=== PATIENT | male | born 1950 | race Caucasian/White ===

== ENCOUNTER 2018-05-08 14:54 | Inpatient (IN) | payer OTHER, MEDICARE ==
[~2018-05-08] VITALS: Ht 172.7 cm; Wt 96.8 kg
--- NOTE | ~2018-05-08 | PR ---
[place], [place] PROGRESS NOTE NAME: LORE MARROQUIN UNIT #: [id number] ROOM: 507 DOCTOR: ASHLEIGH ESCOBAR MD BIRTHDATE: [birth year] DOS: 05/10/2018 NEPHROLOGY FOLLOWUP NOTE SUBJECTIVE: The patient was seen and examined. He is awake, alert. Denies shortness of breath. Denies nausea, vomiting, fevers or chills. He was on room air. PHYSICAL EXAMINATION: VITAL SIGNS: Showed temperature 97.5, pulse 92, respiratory rate 18, blood pressure 158/92. HEENT: Shows no JVD. LUNGS: Diminished breath sounds with no wheeze. HEART: S1, S2. No rub, thrill or gallop. ABDOMEN: Soft, nontender. There is no organomegaly. EXTREMITIES: Had no edema. LABORATORY DATA: Reviewed. Hemoglobin 15, white count of 14.9, platelets 177. BUN 9, creatinine 0.75, sodium 133, potassium 4.9, CO2 of 33, calcium of 9.0. ASSESSMENT AND PLAN: 1. Hyponatremia, which may be related to syndrome of inappropriate antidiuretic hormone. There may be some element of a low solute intake contributing as well. The patient's sodium level is improving. He is off IV fluids. Continue an oral fluid restriction. Increase protein intake. Avoid thiazide diuretics. 2. Lung mass. Plans for biopsy noted as an outpatient. 3. History of alcohol abuse. He is on DT prophylaxis it seems and being monitored carefully. 4. Hypertension. Continue meds. As stated, avoid thiazides. ASHLEIGH ESCOBAR MD CM:PNTRANS [id number] ASHLEIGH ESCOBAR MD 05/10/18 1638 interface
--- NOTE | ~2018-05-08 | CON ---
[place], [place] REPORT OF CONSULTATION NAME: LORE MARROQUIN UNIT #: [id number] ROOM: 507 DOCTOR: LIGIA MAHAN MD BIRTHDATE: [birth year] DOS: 05/09/2018 PULMONARY CONSULTATION EVALUATION AND MANAGEMENT CONSULTATION REQUESTED BY: Hospitalist Service. REASON FOR CONSULTATION: Assessment of current pulmonary nodule, other respiratory problem. HISTORY OF PRESENT ILLNESS: A 67-year-old white male patient admitted to the hospital for assessment of progressive pain, which is described in the left side of the back as well as the shoulder and side of the chest. The pain has been ongoing for the past 1 month or more. The pain was radiating to the left arm causing some numbness. The pain has been described intermittently, mild to moderate in severity. [facility] and has been noted with nodule/mass in the right upper lobe and awaiting for further assessment. The patient came into the Emergency Room where he had been assessed and hospitalized. He does have symptoms of wheezing at times described as "smoker cough." The cough was noted productive sputum in the morning. He does have symptoms of wheezing at times as well. Shortness of breath has been noted usually with exertional activities. There were no symptoms of hemoptysis. REVIEW OF SYSTEMS: CONSTITUTIONAL SYMPTOMS: He was complaining of symptoms of fatigue and tiredness without any fever or chills. EYES: Denies any burning, redness, or tenderness. EARS, NOSE, THROAT SYMPTOMS: Denies sore throat, hoarseness, otalgia, postnasal drainage or epistaxis. CARDIOVASCULAR: Denies angina pain, edema, pain of the lower extremities. GASTROINTESTINAL: No dysphagia, nausea, vomiting, diarrhea, abdominal pain, hematemesis, melena, hematochezia, or abnormal weight loss history recently. GENITOURINARY SYMPTOMS: Denies dysuria, suprapubic pain, or hematuria. MUSCULOSKELETAL SYMPTOMS: Denies acute joint pain, redness, or tenderness except his current left-sided shoulder pain. CENTRAL NERVOUS SYSTEM: Denies dizziness, headache, diplopia, syncopal episodes. SKIN: Denies abnormal lesions or rashes. Remaining systems were reviewed, they were noted all negative. PAST MEDICAL HISTORY: 1. Noted intervertebral disk disease. 2. Degenerative arthritis. 3. Chronic nicotine use. SOCIAL HISTORY: The patient is , lives at home. Drinks 2 or 3 beers a day. Denies history of alcohol use. Tobacco use noted a pack of cigarettes or more a day for many years since teenager. Denies history of alcohol use or illicit drugs. [place], [place] REPORT OF CONSULTATION NAME: LORE MARROQUIN UNIT #: [id number] ROOM: 507 DOCTOR: LIGIA MAHAN MD BIRTHDATE: [birth year] FAMILY HISTORY: The patient's father age 3535 years old, unknown medical illnesses. Mother at the age of 8383 years old with an unknown cancer. HOME MEDICATIONS: Noted as p.r.n. use of Tylenol. DRUG ALLERGIES: No known drug allergies. PHYSICAL EXAMINATION: GENERAL: This is a 67-year-old white male patient who has been currently noted comfortable at this time, lying in the bed without any acute distress. VITAL SIGNS: The patient's height was recorded by the nursing staff as 5 feet 8 inches, weight of 213 pounds, BMI 32.4. VITAL SIGNS: For the patient shows a normal temperature. The respiratory rate of 20-18, heart rate 93-99, blood pressure 148/95-125/78. Pulse oxygen saturation of the patient recorded on room air 93% saturation. HEENT: Examination shows head was atraumatic. Eyes nonicterus. NECK: Supple. CARDIOVASCULAR: S1, S2 is audible. LUNGS: The patient was noted with moderate decreased breath sounds noted in the lungs bilaterally with expiratory wheezing. ABDOMEN: Soft with moderate obesity. Bowel sounds present. EXTREMITIES: No tenderness. No organomegaly. SKIN: Visible skin was noted with dryness of the skin. There were no lesions or rashes. CENTRAL NERVOUS SYSTEM: Cranial nerves 2-12 intact. No focal deficit. MUSCULOSKELETAL: Noted without any acute deformities. LABORATORY DATA: Reviewed on this patient. CBC that was done yesterday on admission WBC count 12.7, hemoglobin, hematocrit and platelet count were normal. CMP of 96, BUN normal, creatinine was normal, sodium 128, chloride of 92. BUN 27. CBC of 05/09/2018 was noted as a MCV 102, normal CBC. The CMP for the patient that was done today, BUN 5, creatinine was normal. Sodium 129, chloride of 93. Total protein 8.5, albumin normal. The PT and PTT were noted as normal. The chest x-ray that was done on 05/08/2018, the patient was noted with right upper lung nodule. CT scan of the chest was done as a CTA of the chest for the patient and it shows evidence of 1.5 x 1.9 irregular nodule present in the right upper lung close to the subpleural surface. Right hilar lymph node enlargement for the patient was also noted. There was no recent chest x-ray noted. Last x-ray was done for the patient in 2002 that was essentially noted as no acute abnormalities. IMPRESSION: 1. The patient who has been currently admitted to the hospital noted with symptoms of pain, which is described in the shoulder, arm and the left side of the chest and the back. The symptoms were currently being investigated. 2. Very mild hyponatremia with normal BUN and creatinine and low urine osmolality with possible consideration of syndrome of inappropriate antidiuretic hormone secretion versus poor oral intake of sodium and use of the beer. 3. The patient with right upper lung nodule at this time with lymph node enlargement, strong suspicion for primary lung malignancy. [place], [place] REPORT OF CONSULTATION NAME: LORE MARROQUIN UNIT #: [id number] ROOM: 507 DOCTOR: LIGIA MAHAN MD BIRTHDATE: [birth year] 4. The patient with acute exacerbation of chronic obstructive pulmonary disease, new onset. 5. History of longstanding tobacco use as well. PLAN OF MANAGEMENT: The patient has been ordered the fluid restriction by the Nephrology Services, [facility]. Solu-Medrol currently given 40 mg b.i.d. that will be continued. Continue bronchodilators and oxygen supplementation. Continuation of the nicotine placement patches as well. Reduction of Solu-Medrol will be done gradually with improvement in the respiratory status. Further assessment of the current problem was suggested for this patient to be done either through the [facility] or could be assisted and done through my office. The patient has not made any decision about that and stated that he would speak it with the daughter prior to making the decision. In the meantime, the patient's respiratory status will be optimized. Other therapy, plan of management to be continued. Usual care. All other supportive plan of management and care plan. Usual medical management and other therapies. Smoking cessation and counseling was done with the patient. He has been currently using nicotine placement patches that will be continued. Thank you for allowing me to participate in the care of this patient. LIGIA MORALES MD CM:CONSTR:REPORT OF CONSULTATION 1649 05/10/18 0048 interface
--- NOTE | ~2018-05-08 | EKG ---
[place], [place] ELECTROCARDIOGRAM REPORT NAME: LORE MARROQUIN UNIT #: [id number] ROOM: 507 DOCTOR: KENZIE DRAFT REPORT BIRTHDATE: [birth year] [facility] Test Date: 2018-05-08 Test Time: 20:53:16 Pat Name: LORE MARROQUIN Department: Room: 507 Gender: M Boom Master: SS RESP : 1950 Requested By: ISABELLE PETTY PA-C Order Number: [id number] Reading MD: Santos Pratt MD Measurements Intervals [place] Rate: 100 P: 81 OK: 200 QRS: 72 QRSD: 100 T: 54 QT: 347 QTc: 448 Interpretive Statements Sinus tachycardia Atrial premature complex Probable left atrial enlargement Low voltage, extremity leads Baseline wander in lead(s) II,III,aVF Electronically Signed On 05-09-2018 13:41:20 PDT by Santos Pratt MD CM:EKGRPT:ELECTROCARDIOGRAM REPORT 54 1341 ISABELLE ESPINO DRAFT REPORT ISABELLE PETTY PA-C
--- NOTE | ~2018-05-08 | PR ---
[place], [place] PROGRESS NOTE NAME: LORE MARROQUIN UNIT #: [id number] ROOM: 507 DOCTOR: CARMEN SMILEY MD,LIGIA BIRTHDATE: [birth year] DOS: 05/11/2018 SUBJECTIVE: The patient noted comfortable at this time, resting on the bed without any acute distress. He was planned for discharge home today. Respiratory symptoms, the patient has improved significantly. Denies any chest pain. OBJECTIVE: VITAL SIGNS: The patient showed normal temperature, respiratory rate 18, heart rate 102 and blood pressure 156/94. The pulse oxygen saturation of the patient room air 92% saturation. HEENT: Showed no new change. NECK: Supple. CARDIOVASCULAR: S1, S2 is audible. LUNGS: The patient was noted without any wheezing or crackles at present time. ABDOMEN: Soft, nontender. EXTREMITIES: No acute edema. IMPRESSION: The patient with right upper lung pulmonary nodule with lymphadenopathy in the right hilar area, history of nicotine abuse and chronic obstructive pulmonary disease. PLAN OF TREATMENT: The patient could be discharged whenever he is desired per primary care attending. Outpatient PET scan will be done for the patient prior to further assessment and management of current suspected nodule as a possibility of malignancy, primary lung cancer is high. Abstinence tobacco use for the patient was discussed. Outpatient followup established after the PET scan that will be arranged through the office. LIGIA MORALES MD CM:PNTRANS [id number] LIGIA SMILEY MD 05/11/18 1137 interface
--- NOTE | ~2018-05-08 | PR ---
[place], [place] PROGRESS NOTE NAME: LORE MARROQUIN UNIT #: [id number] ROOM: 507 DOCTOR: LIGIA MAHAN MD BIRTHDATE: [birth year] DOS: 05/10/2018 PULMONARY PROGRESS NOTE SUBJECTIVE: He has been noted comfortable at this time, reduction in respiratory symptoms are noted including chest pain and other symptoms of shortness of breath and wheezing, the patient has been improving. There were no symptoms of chest pain. OBJECTIVE: VITAL SIGNS: Normal temperature this afternoon, respiratory rate of 18, heart rate 92, blood pressure 158/92. Pulse oxygen saturation on room air 94% saturation. HEENT: Head was atraumatic. Eyes nonicterus. NECK: Supple. CARDIOVASCULAR: S1, S2 audible. LUNGS: Without any wheeze or crackle. Breaths are noted mild to moderately decreased bilaterally. ABDOMEN: Soft, obese, nontender. EXTREMITIES: No edema. LABORATORY DATA: The patient's sodium noted 133, CO2 33. CBC - WBC 14.9. IMPRESSION: 1. Resolving hyponatremia, improving acute exacerbation of chronic obstructive pulmonary disease, history of chronic nicotine dependence. 2. Pulmonary nodule noted in the right upper lung with associated mild right hilar lymphadenopathy suggestive of possibility of malignant process, required further assessment. PLAN OF MANAGEMENT: Assessment and management of the patient today were discussed with the patient and the patient wished to have further workup done and medical management for current pulmonary nodule. He could make an appointment as an outpatient. Information will be given to him. Tobacco cessation counseling was done again. The patient could be discharged home whenever desired if medically stable from pulmonary standpoint. [place], [place] PROGRESS NOTE NAME: LORE MARROQUIN UNIT #: [id number] ROOM: 507 DOCTOR: LIGIA MAHAN MD BIRTHDATE: [birth year] LIGIA MORALES MD CM:PNTRANS [id number] LIGIA SMILEY MD 05/10/18 2324 interface
[~2018-05-08 14:54] MED LIST: CLARITIN10 MG PO; MEDROL DOSEPAK4 MG PO
[2018-05-08 14:55] VITALS: BP 148/95
[2018-05-08] MEDS ORDERED: APAP500 MG PO (15:01)
[2018-05-08 16:07] LABS: BASO # 0.1 10*3/uL (0.0-0.1); BASO % 0.5 % (0.0-1.0); EOS # 0.2 10*3/uL (0.0-0.4); EOS % 1.6 % (1.0-4.0); HEMATOCRIT 45.4 % (42.0-52.0); HEMOGLOBIN 15.9 g/dl (14.0-18.0); LYMPH # 4.1 10*3/uL (1.3-4.4); LYMPH % 32.7 % (27.0-41.0); MEAN CELL VOLUME 100.4 fl (80.0-94.0); MEAN CORPUSCULAR HGB 35.2 pg (27.0-31.0); MEAN PLATELET VOLUME 9.1 fl (9.6-12.3); MONO # 1.1 10*3/uL (0.1-1.0); MONO % 8.7 % (3.0-9.0); NEUT # 7.1 10*3/uL (2.3-7.9); NEUT % 56.1 % (47.0-73.0); PLATELET COUNT AUTOMATED 180 10*3/uL (130-400); RED BLOOD COUNT 4.52 10*6/uL (4.50-5.90); RED CELL DISTRI WIDTH 13.1 % (0-14.5); WHITE BLOOD COUNT 12.7 10*3/uL (4.8-10.8)
[2018-05-08 16:24] LABS: ALBUMIN 3.4 gm/dl (3.1-4.5); ALKALINE PHOSPHATASE 85 U/L (45-117); BUN 3 mg/dl (7-24); CHLORIDE 92 mmol/L (98-107); POTASSIUM 3.8 mmol/L (3.5-5.1); SGOT/AST 20 IU/L (3-35); SGPT/ALT 32 U/L (12-78); SODIUM 128 mmol/L (136-145); TOTAL PROTEIN 8.4 gm/dL (6.4-8.2)
[2018-05-08 16:57] VITALS: BP 142/94
[2018-05-08 18:45] VITALS: BP 146/92
[2018-05-08 20:20] VITALS: BP 146/72
[2018-05-08 22:35] VITALS: BP 162/95
[2018-05-09 06:10] LABS: BASO % 0.2 % (0.0-1.0); EOS % 0.1 % (1.0-4.0); HEMATOCRIT 47.5 % (42.0-52.0); HEMOGLOBIN 16.4 g/dl (14.0-18.0); LYMPH # 1.2 10*3/uL (1.3-4.4); LYMPH % 14.7 % (27.0-41.0); MEAN CELL VOLUME 102.4 fl (80.0-94.0); MEAN CORPUSCULAR HGB 35.3 pg (27.0-31.0); MEAN CORPUSCULAR HGB CONC 34.5 g/dl (33.0-37.0); MEAN PLATELET VOLUME 9.8 fl (9.6-12.3); MONO # 0.1 10*3/uL (0.1-1.0); MONO % 0.9 % (3.0-9.0); NEUT # 6.8 10*3/uL (2.3-7.9); NEUT % 83.6 % (47.0-73.0); PLATELET COUNT AUTOMATED 186 10*3/uL (130-400); RED BLOOD COUNT 4.64 10*6/uL (4.50-5.90); WHITE BLOOD COUNT 8.2 10*3/uL (4.8-10.8)
[2018-05-09 06:28] LABS: ALBUMIN 3.3 gm/dl (3.1-4.5); BUN 5 mg/dl (7-24); CHLORIDE 93 mmol/L (98-107); CHOLESTEROL 171 mg/dL (<200); CREATININE 0.79 mg/dL (0.70-1.30); PHOSPHOROUS 3.5 mg/dL (2.5-4.9); POTASSIUM 4.7 mmol/L (3.5-5.1); SGOT/AST 17 IU/L (3-35); SGPT/ALT 31 U/L (12-78); SODIUM 129 mmol/L (136-145); TOTAL PROTEIN 8.5 gm/dL (6.4-8.2); TRIGLYCERIDES 90 mg/dl (<150); VLDL CHOLESTEROL 18 mg/dL (6-40)
[2018-05-09 06:35] LABS: ALKALINE PHOSPHATASE 84 U/L (45-117); FREE T4 1.21 ng/dl (0.76-1.46); HDL CHOLESTEROL 37 mg/dl (40-60); LDL CHOLESTEROL 116 mg/dL (9-159); THYROID STIM HORMONE (HS) 0.712 uIU/ml (0.358-4.75)
[2018-05-09 06:45] LABS: ACT PARTIAL THROMBO TIME 26.8 SECONDS (20.8-31.5)
[2018-05-09 07:48] LABS: VITAMIN D, 25-HYDROXY 14.2 ng/mL (30-100)
[2018-05-09 12:00] VITALS: BP 125/78
[2018-05-09 16:00] VITALS: BP 138/83
[2018-05-09 20:00] VITALS: BP 160/83
[2018-05-10] VITALS: BP 152/80
[2018-05-10 06:22] LABS: BASO % 0.1 % (0.0-1.0); HEMATOCRIT 43.6 % (42.0-52.0); LYMPH # 1.9 10*3/uL (1.3-4.4); LYMPH % 12.9 % (27.0-41.0); MEAN CELL VOLUME 103.6 fl (80.0-94.0); MEAN CORPUSCULAR HGB 35.6 pg (27.0-31.0); MEAN CORPUSCULAR HGB CONC 34.4 g/dl (33.0-37.0); MEAN PLATELET VOLUME 9.8 fl (9.6-12.3); MONO # 0.8 10*3/uL (0.1-1.0); MONO % 5.4 % (3.0-9.0); NEUT # 12.1 10*3/uL (2.3-7.9); NEUT % 80.6 % (47.0-73.0); PLATELET COUNT AUTOMATED 177 10*3/uL (130-400); RED BLOOD COUNT 4.21 10*6/uL (4.50-5.90); RED CELL DISTRI WIDTH 13.1 % (0-14.5); WHITE BLOOD COUNT 14.9 10*3/uL (4.8-10.8)
[2018-05-10 06:44] LABS: BUN 9 mg/dl (7-24); CHLORIDE 96 mmol/L (98-107); CREATININE 0.75 mg/dL (0.70-1.30); POTASSIUM 4.9 mmol/L (3.5-5.1); SODIUM 133 mmol/L (136-145)
[2018-05-10 08:00] VITALS: BP 148/68
[2018-05-10 12:00] VITALS: BP 158/92
[2018-05-10 16:00] VITALS: BP 150/87
[2018-05-10 20:00] VITALS: BP 146/84
[2018-05-11] VITALS: BP 156/94
[2018-05-11] MEDS ORDERED: NICODERM T (08:31)
[2018-05-11] MEDS ORDERED: LISINOPRIL10 M1 PO (08:31)
[2018-05-11] MEDS ORDERED: LEVOFLOXACIN500 MG PO (08:31)
[2018-05-11] MEDS ORDERED: PREDNISONE10 MG PO (08:31)
== END 2018-05-11 09:35 | disposition home or self-care (01) | DRG 871 ==
LOC: ED 14:54 → 5E 21:47 → EDHOLD 21:47 → 5E 22:07
PROVIDERS: Internal Medicine; Physician Assistant; Student in an Organized Health Care Education/Training Program
DX: A41.9 Sepsis, unspecified organism (principal); J18.9 Pneumonia, unspecified organism; E44.1 Mild protein-calorie malnutrition; E87.1 Hypo-osmolality and hyponatremia; J44.0 Chronic obstructive pulmonary disease with (acute) lower respiratory infection; J44.1 Chronic obstructive pulmonary disease with (acute) exacerbation; D75.89 Other specified diseases of blood and blood-forming organs; R91.8 Other nonspecific abnormal finding of lung field; I10 Essential (primary) hypertension; E87.8 Other disorders of electrolyte and fluid balance, not elsewhere classified; Z96.651 Presence of right artificial knee joint; R91.1 Solitary pulmonary nodule; R59.1 Generalized enlarged lymph nodes; M19.90 Unspecified osteoarthritis, unspecified site; Z72.0 Tobacco use; Z71.6 Tobacco abuse counseling; Z79.899 Other long term (current) drug therapy; Z80.8 Family history of malignant neoplasm of other organs or systems; Z68.32 Body mass index [BMI] 32.0-32.9, adult

== ENCOUNTER → 2018-06-11 | Outpatient (CLI) | payer OTHER, MEDICARE ==
[~2018-06-11] MED LIST changes: +APAP500 MG PO; +LEVOFLOXACIN500 MG PO; +LISINOPRIL10 M1 PO; +NICODERM T; +PREDNISONE10 MG PO
== END | disposition home or self-care (01) ==
LOC: RESCLI 01:18
DX: I10 Essential (primary) hypertension (principal); G56.22 Lesion of ulnar nerve, left upper limb; R91.8 Other nonspecific abnormal finding of lung field; R00.0 Tachycardia, unspecified; F17.200 Nicotine dependence, unspecified, uncomplicated

== ENCOUNTER 2018-09-17 11:25 | Inpatient (IN) | payer MEDICARE, OTHER ==
[~2018-09-17] VITALS: Ht 170.2 cm; Wt 84.4 kg
--- NOTE | ~2018-09-17 | EKG ---
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
[2018-09-17 11:28] VITALS: BP 126/80
[2018-09-17 12:58] LABS: BASO # 0.1 10*3/uL (0.0-0.1); BASO % 0.6 % (0.0-1.0); EOS # 0.2 10*3/uL (0.0-0.4); EOS % 1.6 % (1.0-4.0); HEMATOCRIT 43.9 % (42.0-52.0); HEMOGLOBIN 14.8 g/dl (14.0-18.0); LYMPH % 32.1 % (27.0-41.0); MEAN CELL VOLUME 98.4 fl (80.0-94.0); MEAN CORPUSCULAR HGB 33.2 pg (27.0-31.0); MEAN CORPUSCULAR HGB CONC 33.7 g/dl (33.0-37.0); MEAN PLATELET VOLUME 9.2 fl (9.6-12.3); MONO # 1.1 10*3/uL (0.1-1.0); MONO % 11.3 % (3.0-9.0); NEUT # 5.1 10*3/uL (2.3-7.9); NEUT % 53.7 % (47.0-73.0); PLATELET COUNT AUTOMATED 212 10*3/uL (130-400); RED BLOOD COUNT 4.46 10*6/uL (4.50-5.90); RED CELL DISTRI WIDTH 13.1 % (0-14.5); WHITE BLOOD COUNT 9.4 10*3/uL (4.8-10.8)
[2018-09-17 13:05] LABS: ACT PARTIAL THROMBO TIME 25.3 SECONDS (20.8-31.5)
[2018-09-17 13:17] LABS: ALBUMIN 2.9 gm/dl (3.1-4.5); ALKALINE PHOSPHATASE 106 U/L (45-117); BUN 4 mg/dl (7-24); CHLORIDE 90 mmol/L (98-107); CREATININE 0.59 mg/dL (0.70-1.30); POTASSIUM 4.4 mmol/L (3.5-5.1); SGOT/AST 30 IU/L (3-35); SGPT/ALT 31 U/L (12-78); SODIUM 127 mmol/L (136-145); TOTAL PROTEIN 7.6 gm/dL (6.4-8.2)
[2018-09-17 13:19] LABS: TROPONIN I < 0.015 ng/ml (<0.045)
[2018-09-17 16:03] VITALS: BP 136/84
[2018-09-17] MEDS ORDERED: MORPHINE SULFAT30 M9 PO (16:37)
[2018-09-17] MEDS ORDERED: LASIX20 MG PO (16:38)
[2018-09-17] MEDS ORDERED: OXYCODONE5 M1 PO (16:38)
[2018-09-17] MEDS ORDERED: K-TAB20 MEQ PO (16:54)
[2018-09-17 19:34] VITALS: BP 106/63
[2018-09-18] VITALS: BP 117/68
[2018-09-18 06:41] LABS: BASO # 0.1 10*3/uL (0.0-0.1); BASO % 0.6 % (0.0-1.0); EOS # 0.3 10*3/uL (0.0-0.4); EOS % 3.5 % (1.0-4.0); HEMOGLOBIN 13.8 g/dl (14.0-18.0); LYMPH # 2.5 10*3/uL (1.3-4.4); LYMPH % 27.6 % (27.0-41.0); MEAN CELL VOLUME 99.3 fl (80.0-94.0); MEAN CORPUSCULAR HGB 34.2 pg (27.0-31.0); MEAN CORPUSCULAR HGB CONC 34.5 g/dl (33.0-37.0); MONO # 1.3 10*3/uL (0.1-1.0); MONO % 14.1 % (3.0-9.0); NEUT # 4.7 10*3/uL (2.3-7.9); NEUT % 53.1 % (47.0-73.0); PLATELET COUNT AUTOMATED 222 10*3/uL (130-400); RED BLOOD COUNT 4.03 10*6/uL (4.50-5.90); RED CELL DISTRI WIDTH 13.2 % (0-14.5); WHITE BLOOD COUNT 8.9 10*3/uL (4.8-10.8)
[2018-09-18 07:04] LABS: ALBUMIN 2.6 gm/dl (3.1-4.5); BUN 5 mg/dl (7-24); CHLORIDE 95 mmol/L (98-107); CREATININE 0.57 mg/dL (0.70-1.30); PHOSPHOROUS 3.4 mg/dL (2.5-4.9); POTASSIUM 4.2 mmol/L (3.5-5.1); SGOT/AST 23 IU/L (3-35); SGPT/ALT 26 U/L (12-78); SODIUM 132 mmol/L (136-145); TOTAL PROTEIN 6.6 gm/dL (6.4-8.2)
[2018-09-18 07:05] LABS: ALKALINE PHOSPHATASE 95 U/L (45-117)
[2018-09-18 12:00] VITALS: BP 101/61
[2018-09-18] MEDS ORDERED: KEFLEX500 M1 PO (13:32)
== END 2018-09-18 14:34 | disposition home health service (06) | DRG 603 ==
LOC: ED 11:25 → EDHOLD 13:39 → 5E 13:39
PROVIDERS: Emergency Medicine; Registered Nurse; ADMIT Internal Medicine
PROC: 0HBMXZZ Excision of Right Foot Skin, External Approach (ICD-10-PCS; 2018-09-17)
PROC: 0HBRXZZ Excision of Toe Nail, External Approach (ICD-10-PCS; principal; 2018-09-18)
DX: L03.115 Cellulitis of right lower limb (principal); E44.0 Moderate protein-calorie malnutrition; C34.90 Malignant neoplasm of unspecified part of unspecified bronchus or lung; E87.1 Hypo-osmolality and hyponatremia; C79.51 Secondary malignant neoplasm of bone; L97.519 Non-pressure chronic ulcer of other part of right foot with unspecified severity; E87.8 Other disorders of electrolyte and fluid balance, not elsewhere classified; D72.89 Other specified disorders of white blood cells; I10 Essential (primary) hypertension; D53.9 Nutritional anemia, unspecified; Z96.651 Presence of right artificial knee joint; E55.9 Vitamin D deficiency, unspecified; Z72.0 Tobacco use; Z87.01 Personal history of pneumonia (recurrent); Z80.9 Family history of malignant neoplasm, unspecified; Z79.899 Other long term (current) drug therapy; Z92.21 Personal history of antineoplastic chemotherapy; Z68.29 Body mass index [BMI] 29.0-29.9, adult

== ENCOUNTER → 2018-09-24 | Outpatient (CLI) | payer MEDICARE, OTHER ==
[~2018-09-24] MED LIST changes: +K-TAB20 MEQ PO; +KEFLEX500 M1 PO; +LASIX20 MG PO; +MORPHINE SULFAT30 M9 PO; +OXYCODONE5 M1 PO
== END | disposition home or self-care (01) ==
LOC: RESCLI 02:53
DX: C34.91 Malignant neoplasm of unspecified part of right bronchus or lung (principal); E87.1 Hypo-osmolality and hyponatremia; L03.116 Cellulitis of left lower limb; L03.115 Cellulitis of right lower limb; R60.0 Localized edema; F17.210 Nicotine dependence, cigarettes, uncomplicated; Z79.899 Other long term (current) drug therapy

== ENCOUNTER → 2018-10-08 | Outpatient (CLI) | payer MEDICARE, OTHER | END | disposition home or self-care (01) | LOC: CARD 09:30 | DX: R60.0 Localized edema (principal) ==

== ENCOUNTER 2019-04-02 15:17 | Emergency (ER) | payer MEDICARE ==
[~2019-04-02] VITALS: Ht 172.7 cm; Wt 65.8 kg
[2019-04-02 18:12] VITALS: BP 106/60
== END 2019-04-02 20:01 | disposition home or self-care (01) ==
LOC: ED 15:17
DX: M84.522A Pathological fracture in neoplastic disease, left humerus, initial encounter for fracture (principal); C79.51 Secondary malignant neoplasm of bone; F17.200 Nicotine dependence, unspecified, uncomplicated; Z79.899 Other long term (current) drug therapy; Z96.651 Presence of right artificial knee joint; Z98.890 Other specified postprocedural states; W01.0XXA Fall on same level from slipping, tripping and stumbling without subsequent striking against object, initial encounter; Y93.89 Activity, other specified; Y92.89 Other specified places as the place of occurrence of the external cause; Y99.8 Other external cause status